=== PATIENT | male | born 1960 | race Caucasian/White ===

== ENCOUNTER 2021-08-12 20:13 | Emergency (ER) | payer BC, MEDICARE ==
[2021-08-12] MEDS ORDERED: Sodium Chloride 0.9% 1000 ML 1,000 ML IV STA (20:37)
[2021-08-12] MEDS ORDERED: Sodium Chloride 0.9% 1000 ML 1,000 ML ONE (20:54)
[2021-08-12 21:05] LABS: Absolute Neutrophil Ct (ANC) 15.47 (1.4-6.9); BASOPHIL % 0.2 % (0.0-0.4); Basophil (Absolute #) 0.04 (0-0.4); Eosinophil % 1.5 % (0.00-5.0); Eosinophil (Absolute #) 0.27 (0-0.5); Hematocrit 39.2 % (42-50); Hemoglobin 12.4 gm/dl (12.5-18.0); Lymphocytes % 4.6 % (24.0-44.0); Mean Cell Volume 90.5 fl (78-100); Mean Corpuscular Hemoglobin 28.6 pg (26-32); Mean Corpuscular Hgb Concent. 31.6 g/dl (32-36); Mean Platelet Volume 9.9 fl (7.5-11.0); Monocyte (Absolute #) 0.98 (0.0-1.3); Monocytes % 5.6 % (0.0-12.0); Neutrophil % 88.1 % (36.0-66.0); Platelet Count 336 K/mm3 (150-450); Red Blood Count 4.33 M/mm3 (4.1-5.6); White Blood Count 17.6 K/mm3 (4.0-10.5)
[2021-08-12 21:19] LABS: ALBUMIN 4.1 g/dL (3.5-5.0); ANION GAP 21.3 MEQ/L (5-15); BILIRUBIN,TOTAL 0.7 mg/dL (0.2-1.3); Calcium 10.2 mg/dL (8.4-10.2); Creatinine 1 3.01 mg/dL (0.66-1.25); EST GLOMERULAR FILTRATION RATE 22.7 ML/MIN; Potassium 5.2 mmol/L (3.5-5.1); Total Protein 8.4 g/dL (6.3-8.2)
--- NOTE | 2021-08-12 21:19 | ERPHSYRPT ---
- History of Present Illness Time Seen by Provider: 08/12/21 20:16 Source: patient, family Exam Limitations: no limitations Patient Subjective Stated Complaint: pt ex states "I brought him in for dehydration." pt states "My foot hurt on the way here." Triage Nursing Assessment: pt came into the er via wheelchair; pt is axo x1; pt denies pain at time of assessment; pt states he had a norco on the way to the hospital at 1999; pt had a partial rt foot amputation 10/09; pt has stage 2 wound to rt foot; excudate present to rt foot; area of necrosis present; yellow slough present; foul ordor present; yellow/ green discharge present; hx pvd, diabetes; hypertensive Physician History: 60 years old male with history of peripheral vascular disease, diabetes mellitus, right metatarsal amputations presented in the ER with who reports that patient is probably dehydrated as he is having decreased oral intake for the last few days. He denies any chest pain palpitations or shortness of breath. No abdominal pain nausea or vomiting. Does have chronic wound infection and is doing follow-up with wound care. He also has some necrosis/gangrene of right foot lateral aspect of the wound with some discharge. Also had some redness around the wound but no fever or chills reported. He is having off-and-on pain in the right foot and did take Labadie prior to arrival and currently pain-free. Allergies/Adverse Reactions: atenolol Allergy (Verified 08/12/21 20:28) morphine Allergy (Verified 08/12/21 20:28) Penicillins Allergy (Verified 08/12/21 20:28) Hx Tetanus, Diphtheria Vaccination/Date Given: No Hx Influenza Vaccination/Date Given: No Hx Pneumococcal Vaccination/Date Given: No Travel Risk - International Travel Have you traveled outside of the country in past 3 weeks: No - Coronavirus Screening Are you exhibiting any of the following symptoms?: No Close contact with a COVID-19 positive Pt in past 14-21 Days: No - Vaccine Status Have you recieved a Covid-19 vaccination: Yes Strapper Operator: Moderna - Vaccination Dates Date of 2cond Vaccination (if applicable): 04/10 - Review of Systems Constitutional: No Symptoms Eyes: No Symptoms Ears, Nose, & Throat: No Symptoms Respiratory: No Symptoms Cardiac: No Symptoms Abdominal/Gastrointestinal: No Symptoms Genitourinary Symptoms: No Symptoms Musculoskeletal: Injury Skin: Cellulitis, Induration, Skin Lesions Neurological: No Symptoms Hematologic/Lymphatic: No Symptoms Immunological/Allergic: No Symptoms - Past Medical History Pertinent Past Medical History: Yes Neurological History: Peripheral Neuropathy, Stroke ENT History: No Pertinent History Cardiac History: Arrhythmia, High Cholesterol, Hypertension Respiratory History: COPD Endocrine Medical History: Diabetes Type II Musculoskeletal History: Arthritis GI Medical History: No Pertinent History History: Renal Disease Psycho-Social History: Depression Male Reproductive Disorders: No Pertinent History - Past Surgical History Past Surgical History: Yes Neuro Surgical History: No Pertinent History Cardiac: Angioplasty, Cardiac Catheterization, Cardiac Stent Respiratory: No Pertinent History Gastrointestinal: Appendectomy Genitourinary: Kidney Surgery Musculoskeletal: Orthopedic Surgery Other Surgical History: partial amputation to rt foot, left kidney surgery due to cancer - Social History Smoking Status: Former smoker Exposure to second hand smoke: Yes Drug Use: none Patient Lives Alone: No - Nursing Vital Signs Nursing Vital Signs: Initial Vital Signs Temperature 98.8 F 08/12/21 20:29 Pulse Rate 52 L 08/12/21 20:29 Respiratory Rate 16 08/12/21 20:29 Blood Pressure 153/95 08/12/21 20:29 O2 Sat by Pulse Oximetry 94 L 08/12/21 20:29 Pain Scale Pain Intensity 0 - Physical Exam General Appearance: no apparent distress, alert Eye Exam: PERRL/EOMI Ears, Nose, Throat Exam: normal ENT inspection, pharynx normal Neck Exam: normal inspection, supple, full range of motion Respiratory Exam: normal breath sounds, lungs clear Cardiovascular Exam: regular rate/rhythm, normal heart sounds Gastrointestinal/Abdomen Exam: soft, No tenderness Back Exam: normal inspection Extremity Exam: other (Right foot all toes amputation with draw tissue and some sloughing. Gangrene right lateral foot almost 2 cm with erythema on the distal foot with minimal induration. No increased temperature. No tenderness.) Neurologic Exam: alert, oriented x 3, cooperative Skin Exam: rash SpO2 Interpretation: normal SpO2: 94 O2 Delivery: Room Air Ordered Tests: Active Orders 24 hr Category Date Time Status AMA [Release AMA] OM.NOW Care 08/12/21 23:36 Active IV Insertion STAT Care 08/12/21 20:37 Active BLOOD CULTURE Stat Lab 08/12/21 21:00 Received CBC W DIFF Stat Lab 08/12/21 21:00 Completed CMP Stat Lab 08/12/21 21:00 Completed Lactic Acid Stat Lab 08/12/21 20:48 Completed UA W/RFX UR CULTURE Stat Lab 08/12/21 20:37 Ordered VENOUS BLOOD GAS Stat Lab 08/12/21 20:48 Completed Medication Summary Discontinued Medications Generic Name Dose Route Start Last Admin Trade Name Antonino PRN Reason Stop Dose Admin Sodium Chloride 1,000 mls @ 999 mls/hr 08/12/21 20:37 08/12/21 22:16 Sodium Chloride 0.9% 1000 Ml IV 08/12/21 21:37 Infused .Q1H1M STA Infusion Sodium Chloride Confirm 08/12/21 20:54 Sodium Chloride 0.9% 1000 Ml Administered 08/12/21 20:55 Dose 1,000 mls @ ud .ROUTE .STK-MED ONE Clindamycin HCl/Dextrose 900 mg in 50 mls @ 100 mls/hr 08/12/21 22:36 08/12/21 23:09 Clindamycin-D5w 900 Mg/50 Ml IV 08/12/21 23:05 Infused STAT STA Infusion Clindamycin HCl/Dextrose Confirm 08/12/21 22:37 Clindamycin-D5w 900 Mg/50 Ml Administered 08/12/21 22:38 Dose 900 mg in 50 mls @ ud IV .STK-MED ONE Lab/Rad Data: Laboratory Result Diagrams 08/12/21 21:00 08/12/21 21:00 Laboratory Results 08/12/21 08/12/21 08/12/21 Range/Units 21:00 21:00 20:48 WBC 17.6 H (4.0-10.5) K/mm3 RBC 4.33 (4.1-5.6) M/mm3 Hgb 12.4 L (12.5-18.0) gm/dl Hct 39.2 L (42-50) % MCV 90.5 (78-100) fl MCH 28.6 (26-32) pg MCHC 31.6 L (32-36) g/dl RDW 14.0 (11.5-14.0) % Plt Count 336 (150-450) K/mm3 MPV 9.9 (7.5-11.0) fl Gran % 88.1 H (36.0-66.0) % Eos # (Auto) 0.27 (0-0.5) Absolute Lymphs (auto) 0.80 L (1.0-4.6) Absolute Monos (auto) 0.98 (0.0-1.3) Lymphocytes % 4.6 L (24.0-44.0) % Monocytes % 5.6 (0.0-12.0) % Eosinophils % 1.5 (0.00-5.0) % Basophils % 0.2 (0.0-0.4) % Absolute Granulocytes 15.47 H (1.4-6.9) Basophils # 0.04 (0-0.4) pO2/FiO2 Ratio 21.0 % VBG pH 7.33 (7.32-7.42) VBG pCO2 at Pat Temp 39 L (42-55) mm/Hg VBG pO2 at Pat Temp 31 (25-40) mm/Hg VBG HCO3 20.6 L (22-28) meq/L VBG O2 Sat (Jesika) 64.0 L (95-100) VBG Base Excess -4.9 L (-2.0-2.0) VBG Hemoglobin 13.2 VBG Carboxyhemoglobin 5.3 (0.0-6.9) % T HGB POC Potassium 5.6 H (3.5-5.1) Sodium 134 L (137-145) mmol/L Potassium 5.2 H (3.5-5.1) mmol/L Chloride 101 (98-107) mmol/L Carbon Dioxide 17 L (22-30) mmol/L Anion Gap 21.3 H (5-15) MEQ/L BUN 74 H (9-20) mg/dL Creatinine 3.01 H (0.66-1.25) mg/dL Estimated GFR 22.7 ML/MIN Glucose 360 H (74-106) mg/dL Lactic Acid (0.4-2.0) Calcium 10.2 (8.4-10.2) mg/dL Total Bilirubin 0.70 (0.2-1.3) mg/dL AST 30 (17-59) U/L ALT 16 (0-50) U/L Alkaline Phosphatase 158 H (38-126) U/L Serum Total Protein 8.4 H (6.3-8.2) g/dL Albumin 4.1 (3.5-5.0) g/dL 08/12/21 Range/Units 20:48 WBC (4.0-10.5) K/mm3 RBC (4.1-5.6) M/mm3 Hgb (12.5-18.0) gm/dl Hct (42-50) % MCV (78-100) fl MCH (26-32) pg MCHC (32-36) g/dl RDW (11.5-14.0) % Plt Count (150-450) K/mm3 MPV (7.5-11.0) fl Gran % (36.0-66.0) % Eos # (Auto) (0-0.5) Absolute Lymphs (auto) (1.0-4.6) Absolute Monos (auto) (0.0-1.3) Lymphocytes % (24.0-44.0) % Monocytes % (0.0-12.0) % Eosinophils % (0.00-5.0) % Basophils % (0.0-0.4) % Absolute Granulocytes (1.4-6.9) Basophils # (0-0.4) pO2/FiO2 Ratio % VBG pH (7.32-7.42) VBG pCO2 at Pat Temp (42-55) mm/Hg VBG pO2 at Pat Temp (25-40) mm/Hg VBG HCO3 (22-28) meq/L VBG O2 Sat (Jesika) (95-100) VBG Base Excess (-2.0-2.0) VBG Hemoglobin VBG Carboxyhemoglobin (0.0-6.9) % T HGB POC Potassium (3.5-5.1) Sodium (137-145) mmol/L Potassium (3.5-5.1) mmol/L Chloride (98-107) mmol/L Carbon Dioxide (22-30) mmol/L Anion Gap (5-15) MEQ/L BUN (9-20) mg/dL Creatinine (0.66-1.25) mg/dL Estimated GFR ML/MIN Glucose (74-106) mg/dL Lactic Acid 1.4 (0.4-2.0) Calcium (8.4-10.2) mg/dL Total Bilirubin (0.2-1.3) mg/dL AST (17-59) U/L ALT (0-50) U/L Alkaline Phosphatase (38-126) U/L Serum Total Protein (6.3-8.2) g/dL Albumin (3.5-5.0) g/dL - Progress Progress: re-examined Progress Note: 08/12/21 23:28 He is given fluid bolus. Work-up showed white count of 17, acute on chronic renal failure with a baseline creatinine of 2.2 per record from [facility] and BUN in 40s and today creatinine 3.0 and BUN in 70s and also has hyper glycemia with low bicarb and elevated gap but has normal pH. I believe patient is not in DKA but is in state where he can go into DKA pretty quickly and currently is more of a dehydration. He also has some worsening infection right foot and is given a dose of clindamycin in here. I have recommended admission but patient/family does not want to stay in the hospital at all and they want to follow-up outpatient with wound care and primary care in [facility]. Discussed in length with risks of leaving AGAINST MEDICAL ADVICE including but not limited to worsening of renal functions, metabolic acidosis/DKA/sepsis leading to worsening of morbidities including but he/ still want to leave. They are encouraged to outpatient follow-up with wound care and PCP/dog sitter. Recommended continue with Cipro which he is taking. Counseled pt/family regarding: lab results, diagnosis, need for follow-up - Departure Departure Disposition: AMA Clinical Impression: Dehydration, Diabetic foot infection, Hyperglycemia Acute on chronic renal failure Qualifiers: Acute renal failure type: unspecified Chronic kidney disease stage: unspecified stage Qualified Code(s): N17.9 - Acute kidney failure, unspecified Condition: Fair Critical Care Time: No Referrals: BLANCA SIMS MD [Primary Care Provider] - Additional Instructions: Follow-up with your primary care/wound care and dog sitter for reevaluation early next week. Return to ER for worsening. Drink plenty of fluids. Continue with antibiotics.
[2021-08-12 22:34] LABS: VBG BASE EXCESS -4.9 (-2.0-2.0); VBG CARBOXYHEMOGLOBIN 5.3 % T HGB (0.0-6.9); VBG HCO3- 20.6 meq/L (22-28); VBG HEMOGLOBIN 13.2; VBG POTASSIUM 5.6 (3.5-5.1); VBG pH 7.33 (7.32-7.42)
[2021-08-12] MEDS ORDERED: CLINDAMYCIN-D5W 900 MG/50 ML*** 900 MG/50 ML BAG IV STA (22:36)
[2021-08-12] MEDS ORDERED: CLINDAMYCIN-D5W 900 MG/50 ML*** 900 MG/50 ML BAG IV ONE (22:37)
[2021-08-12 23:09] VITALS: BP 139/76; PULSE 53
[2021-08-12 23:35] VITALS: O2SAT 94
== END 2021-08-12 23:49 | disposition home or self-care (01) ==
LOC: ED 20:13
DX: E86.0 Dehydration (principal); E11.65 Type 2 diabetes mellitus with hyperglycemia; L97.519 Non-pressure chronic ulcer of other part of right foot with unspecified severity; E11.621 Type 2 diabetes mellitus with foot ulcer; L97.518 Non-pressure chronic ulcer of other part of right foot with other specified severity; Z89.431 Acquired absence of right foot; I96 Gangrene, not elsewhere classified; M79.671 Pain in right foot; N17.9 Acute kidney failure, unspecified
CPT/HCPCS: 36000; 36415; 80053; 82805; 83605; 85025; 87040; 96360; 99284